=== PATIENT | female | born 1935 | race Caucasian/White ===

== ENCOUNTER 2019-07-30 11:58 | Emergency (ER) | payer SELFPAY ==
[2019-07-30] MEDS ORDERED: NS 0.9% 1000 ML** 1,000 ML BOLUS ONE ×2 (12:04→12:24)
--- NOTE | 2019-07-30 12:25 | UC ---
UC General HPI - HPI Summary HPI Summary: 84 yo female brought here by her granddaughters Apparently she has a three day history of no oral intake She has been non verbal and non ambulatory According to her granddaughter she is usually very active no fever no uri symptoms family denies any significant past medical history Family has been trying to feed her and give her liquids but she refuses them - History of Current Complaint Stated Complaint: UNRESPONSIVE Hx Obtained From: Family/Holder Pile Driving Hx From Patient Unobtainable Due To: Other - non verbal Onset/Duration: Gradual Onset, Lasting Days - 3 Timing: Constant PMH/Surg Hx/FS Hx/Imm Hx Previously Healthy: Yes - Family History Known Family History: Positive: Non-Contributory Review of Systems All Other Systems Reviewed And Are Negative: Yes Constitutional: Positive: Negative Skin: Positive: Negative Eyes: Positive: Negative ENT: Positive: Negative Respiratory: Positive: Negative Cardiovascular: Positive: Negative Gastrointestinal: Positive: Negative Genitourinary: Positive: Negative Motor: Positive: Negative Neurovascular: Positive: Negative Musculoskeletal: Positive: Negative Neurological: Positive: Negative Psychological: Positive: Negative Physical Exam Triage Information Reviewed: Yes Appearance: Other: - cachetic/contractures/poor skin turgor Vital Signs Reviewed: Yes Eyes: Positive: Conjunctiva Clear ENT: Negative: Nasal congestion, Nasal drainage Dental: Negative: Abscess @ Neck: Positive: No Lymphadenopathy Respiratory: Positive: Lungs clear, Normal breath sounds, No respiratory distress, No accessory muscle use Cardiovascular: Positive: RRR Abdomen Description: Positive: Soft Bowel Sounds: Positive: Present Neurological: Positive: Other: - eyes open/responds verbally to pain Skin: Positive: Other - poor turgor Diagnostics - Laboratory Lab Results: Blood sugar 51 - EKG Cardiac Rate: NL Cardiac Rhythm: Sinus: Normal Ectopy: None ST Segment: Normal Course/Dx - Course Course Of Treatment: IV started one amp D50 given Unable to give provider to provider report due to ongoing code in ER Spoke to RN to [facility] via bangs - Diagnoses Provider Diagnosis: Change in mental status, Dehydration, Hypoglycemia Discharge ED - Sign-Out/Discharge Documenting (check all that apply): Patient Departure All imaging exams completed and their final reports reviewed: No Studies - Discharge Plan Condition: Guarded Disposition: TRANS HIGHER LVL OF CARE FAC Meds/Orders/Equipment: Manual Entry Orders Location: None Selected Referrals: No Primary Care Phys,NOPCP [Primary Care Provider] - - Billing Disposition and Condition Condition: GUARDED Disposition: Trans Higher Lvl of Care Fac
[2019-07-30] MEDS ORDERED: Dextrose 50% Syringe 50 ML* 25 GM/50 ML SYRINGE IV PUSH PRN (12:40)
[2019-07-30 12:42] VITALS: BP 145/65
== END 2019-07-30 12:45 | disposition short-term general hospital (02) ==
LOC: UCEAST 11:58
DX: E86.0 Dehydration (principal); E16.2 Hypoglycemia, unspecified; R41.82 Altered mental status, unspecified
CPT/HCPCS: 99203; G0463

== ENCOUNTER 2019-07-30 13:00 | Observation (INO) | payer SELFPAY ==
--- NOTE | 2019-07-30 13:27 | ED ---
Altered Mental Status - HPI Summary HPI Summary: 84 year old F arriving via ambulance from [facility] with family members complains of altered mental status x3 days. Family member states patient is normally alert and oriented, and walks and talks. Patient usually needs help getting dressed per family member and with other ADLs. They state she has a hx of dementia but usually much more independent. She has not seen a doctor in many years. Patient was fine 3 days ago when she suddenly stopped walking and talking. Family member states patient has not been eating anything in 3 days. No fever or vomiting No recent falls. Patient was seen here 3 months ago for dehydration per family member. Surgical hx hip surgery. Symptoms aggravated by nothing. Symptoms alleviated by nothing. - History Of Current Complaint Stated Complaint: ALTERED MENTAL STATUS PER EMS Time Seen by Provider: 07/30/19 13:07 Hx Obtained From: Family/Fire Medic Onset/Duration: Still Present Timing: Constant, Lasting Days - 3 Aggravating Factor(s): Nothing Alleviating Factor(s): Nothing - Allergies/Home Medications Allergies/Adverse Reactions: Allergies Allergy/AdvReac Type Severity Reaction Status Date / Time No Known Allergies Allergy Verified 07/30/19 12:33 PMH/Surg Hx/FS Hx/Imm Hx Endocrine/Hematology History: Denies: Hx Diabetes Cardiovascular History: Denies: Hx Pacemaker/ICD - Surgical History Surgery Procedure, Year, and Place: hip surgery Infectious Disease History: Unable to Obtain/Confirm Infectious Disease History: Denies: Traveled Outside the [place] in Last 30 Days - Family History Known Family History: Negative: Diabetes - Social History Alcohol Use: None Substance Use Type: Reports: None Smoking Status (MU): Never Smoked Tobacco Review of Systems Negative: Fever Negative: Vomiting Neurological: Other - altered mental status All Other Systems Reviewed And Are Negative: Yes Physical Exam - Summary Physical Exam Summary: Constitutional: Eldery, Alert. (-) Distressed Skin: Warm, Dry HENT: Normocephalic; Atraumatic; Dry mucous membranes Eyes: Conjunctiva normal Neck: Musculoskeletal ROM normal neck. (-) JVD, (-) Stridor, (-) Nuchal rigidity Cardio: Rhythm regular, rate normal, Heart sounds normal; Intact distal pulses; Radial pulses are 2+ and symmetric. (-) Murmur Pulmonary/Chest wall: Effort normal. (-) Respiratory distress, (-) Wheezes, (-) Rales Abd: Soft, (-) tenderness, (-) Distension, (-) Guarding, (-) Rebound Musculoskeletal: (-) Edema; Extremities are thin Lymph: (-) Cervical adenopathy Neuro: Somnolent, arouses to painful stimuli, no focal deficits Psych: deferred GCS: 9 ([id number]) Triage Information Reviewed: Yes Vital Signs On Initial Exam: Initial Vitals Temp Pulse Resp BP Pulse Ox 97.0 F 89 12 183/87 96 07/30/19 13:10 07/30/19 13:10 07/30/19 13:10 07/30/19 13:10 07/30/19 13:10 Vital Signs Reviewed: Yes Procedures - Sedation Patient Received Moderate/Deep Sedation with Procedure: No Diagnostics - Vital Signs Vital Signs Temp Pulse Resp BP Pulse Ox 07/30/19 13:10 97.0 F 89 12 183/87 96 - Laboratory Result Diagrams: 07/31/19 03:47 07/31/19 03:47 Lab Statement: Any lab studies that have been ordered have been reviewed, and results considered in the medical decision making process. 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 ED physician has reviewed this imaging report. - CT Brain CT Interpretation Completed By: Radiologist Summary of CT Findings: 1. NO EVIDENCE FOR ACUTE INTRACRANIAL ABNORMALITY. 2. 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 ED physician has reviewed this imaging report. - EKG 1557 Cardiac Rate: NL - 82 BPM EKG Rhythm: Sinus Rhythm Summary of EKG Findings: An EKG at 1557 reveals normal sinus rhythm 82 BPM, nml axis, nml intervals. No STEMI. No acute changes. ED physician has reviewed and interpreted this EKG. Re-Evaluation - Re-Evaluation First Eval Re-Evaluation Time: 16:04 Comment: updated family on neg brain CT and lab results, awaiting UA Second Eval Re-Evaluation Time: 16:11 Comment: patient and family informed patient has UTI Altered Mental Statu Course/Dx - Course Course Of Treatment: 84 y/o F w hx dementia pw AMS. - at [facility] patient had hypoglycemia, s/p D50. Now w BG 200's. DDx includes: CVA, trauma, post ictal, infection, electrolyte abnl, hypothyroidism, psych, worsening dementia. - head CT unremarkable. CXR neg. Labs unremarkable aside from UA w 3+ LE. Given ceftriaxone and IVF. Admit to hospitalist as patient not taking PO or walking. - Diagnoses Provider Diagnoses: UTI (urinary tract infection), Altered mental status, Dehydration - Provider Notifications Discussed Care Of Patient With: Tammy Gauthier Time Discussed With Above Provider: 16:26 Instructed by Provider To: Admit As Inpatient Discharge ED - Sign-Out/Discharge Documenting (check all that apply): Patient Departure - Discharge Plan Condition: Guarded Disposition: ADMITTED TO [facility] - Billing Disposition and Condition Condition: GUARDED Disposition: Admitted to [facility] - Attestation Statements Document Initiated by Yudie: Yes Documenting Scribe: Leslie Vasquez Provider For Whom Aman is Documenting (Include Credential): Hector Pat MD Scribe Attestation: Leslie Orona, scribed for Hector Pat MD on 07/31/19 at 2224. Scribe Documentation Reviewed: Yes Provider Attestation: The documentation as recorded by the scribeLeslie accurately reflects the service I personally performed and the decisions made by , Hector Pat MD Status of Scribe Document: Viewed
[2019-07-30 15:02] LABS: ABS Lymphocytes 1.8 10^3/ul (1.0-4.8); ABS Monocytes 0.5 10^3/ul (0-0.8); ABS Neutrophils 4.4 10^3/ul (1.5-7.7); Eosinophil % 0.5 %; Hematocrit 37 % (35-47); Hemoglobin 12.4 g/dL (12.0-16.0); Lymphocyte % 26.8 %; Mean Corpuscular HGB Conc 34 g/dL (31-36); Mean Corpuscular Hemoglobin 29 pg (27-31); Mean Corpuscular Volume 86 fL (80-97); Platelet Count 309 10^3/uL (150-450); Red Blood Count 4.32 10^6 /uL (3.70-4.87); Red Cell Distribution Width 13 % (10-15); White Blood Count 6.8 10^3/uL (3.5-10.8)
[2019-07-30 15:18] LABS: ALT 9 U/L (7-52); AST 18 U/L (13-39); Albumin 3.6 g/dL (3.2-5.2); Albumin/Globulin Ratio 1.1 (1-3); Alkaline Phosphatase 67 U/L (34-104); Anion Gap 9 mmol/L (2-11); BUN/Creatinine Ratio 28.4 (8-20); Blood Urea Nitrogen 25 mg/dL (6-24); CO2 Carbon Dioxide 23 mmol/L (22-32); Calcium 8.7 mg/dL (8.6-10.3); Chloride 101 mmol/L (101-111); EGFR African American 73.7 (>60); EGFR Non-African American 60.9 (>60); Globulin 3.4 g/dL (2-4); Glucose 177 mg/dL (70-100); Potassium 3.5 mmol/L (3.5-5.0); Sodium 133 mmol/L (135-145)
[2019-07-30 15:26] LABS: Troponin I 0.04 ng/mL (<0.03)
[2019-07-30 16:02] LABS: Urine Appearance Cloudy; Urine Bilirubin Negative (Negative); Urine Blood 2+ (Negative); Urine Color Yellow; Urine Glucose 3+(>=500 mg/dL) (Negative); Urine Ketones 1+ (Negative); Urine Nitrite Negative (Negative); Urine Protein Negative (Negative); Urine Specific Gravity 1.009 (1.010-1.030); Urine Urobilinogen Negative (Negative)
[2019-07-30 16:04] LABS: Urine Bacteria 1+ (Absent); Urine Red Blood Cell 3+(>10/hpf) (Absent); Urine Squamous Epithelial Cell Present (Absent); Urine White Blood Cell 3+(>20/hpf) (Absent)
[2019-07-30] MEDS ORDERED: cefTRIAXone(*) 1 GM in NS 0.9% 50 ML* 50 ML IVPB ONE (16:06)
[2019-07-30] MEDS ORDERED: cefTRIAXone(*) 1 GM ADVAN/BAG ONE (16:31)
[2019-07-30] MEDS ORDERED: NS 0.9% 1000 ML** 1,000 ML IV ONE (17:03)
[2019-07-30] MEDS ORDERED: Acetaminophen TAB* 325 MG PO PRN (17:05)
[2019-07-30] MEDS ORDERED: Ondansetron INJ* 2 MG/ML VIAL IV PRN (17:05)
[2019-07-30] MEDS ORDERED: Al Hydrox/Mg Hydrox/Simet LIQ* 30 ML UDC PO PRN (17:05)
[2019-07-30] MEDS ORDERED: Labetalol IV* 5 MG/ML 20 ML VIAL IV PUSH ONE (17:07)
[2019-07-30] MEDS ORDERED: NS 0.9% 1000 ML** 1,000 ML IV SCH (17:15)
[2019-07-30] MEDS ORDERED: hydrALAZINE IV* 20 MG/ML VIAL IV SLOW PU PRN (17:19)
[2019-07-30] MEDS ORDERED: Enoxaparin(*) 40 MG/0.4 ML SYR SUBCUT SCH (18:00)
[2019-07-30 18:31] LABS: Troponin I 0.05 ng/mL (<0.03)
--- NOTE | 2019-07-30 18:59 | HP ---
HISTORY AND PHYSICAL: DATE OF ADMISSION: 07/30/19 PROVIDER: CAROL Coleman ATTENDING PHYSICIAN WHILE IN THE HOSPITAL: Dr. Tammy Mcdonald * (dictated by CAROL Coleman). PRIMARY CARE PROVIDER: None. CHIEF COMPLAINT: Decreased appetite and altered mental status. HISTORY OF PRESENT ILLNESS: Eli Packer is an 84-year-old Mong[place]ian woman who presents to the emergency department today upon direction from urgent care. The patient's daughter and granddaughter brought her to the emergency department today due to worsening altered mental status as well as decreased appetite. The patient additionally has not been drinking for the last 3 days in addition to not eating last 3 days. At baseline, the patient has dementia, but is typically oriented to self and able to answer questions overall appropriately. At baseline, she is not oriented to location, but knows she lives with her daughter and is not oriented to time as well. Typically, she ambulates on her own with one assist and is able to follow basic commands. She has slowly been more withdrawn, and today, she was not answering questions at all and she is brought to the emergency department upon direction of the urgent care facility. The history is provided by the patient's granddaughter, who she lives with, as the patient is not answering questions, and additionally, the patient does not know Thai. The patient's granddaughter tells me that the patient has been grabbing her abdomen more frequently, but she does not appear in overt pain and she has not been vomiting. The patient has chronic constipation at baseline and has not had any bowel changes or diarrhea. She measured her temperature at home today and it was normal at 98 degrees Fahrenheit and she has not had fevers or chills. She has not been having respiratory distress or recent cough and has not had complaints otherwise. Additionally when the patient was at urgent care, she had a blood sugar checked which found blood glucose of 51 and an ampule of D50 was given and EMS was called. PAST MEDICAL HISTORY: 1. Dementia. 2. Chronic constipation. PAST SURGICAL HISTORY: Left hip ORIF last year. MEDICATIONS: No home medications or supplements. ALLERGIES: No known drug allergies. FAMILY HISTORY: Her parents' medical history is unknown, but she does have 4 children who have history of diabetes mellitus type 2. SOCIAL HISTORY: The patient is from [place] and moved to [place] a year ago to live with her daughter and granddaughter. The patient's confederated salish language is Morris. She responds to the name, Ochoa. She is a . She does not smoke, drink, or use illicit drugs and she was never a smoker. 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 REVIEW OF SYSTEMS: An 11-point review of systems is answered to the best of the granddaughter's ability. All pertinent positives and negatives are above in the HPI. All other systems are negative. PHYSICAL EXAMINATION GENERAL: Thin Mong[place]ian female, lying in hospital bed, appearing comfortable, in no acute distress. VITAL SIGNS: Temperature 97.0, pulse 89, respiratory rate 12, oxygen saturation 96% on room air, and blood pressure 183/87. HEENT: Eyes: PERRL. Sclerae anicteric. EOMI. No gaze deviation. Unable to assess for nystagmus with eye motion as the patient does not follow commands. ENT: Lips appear dry. LUNGS: Poor patient effort, but lungs sound clear to auscultation and respirations are symmetrical. CARDIO: Regular rate and rhythm without murmurs, rubs, or gallops. ABDOMEN: Normoactive bowel sounds x4 quadrants. Abdomen is soft, nontender, nondistended. No suprapubic tenderness. EXTREMITIES: No clubbing, cyanosis, or edema. Extremities are thin. NEURO: The patient is alert, but not interactive, unable to assess orientation , unable to assess strength or sensation due to the patient's inability to follow basic commands. She does independently move all 4 extremities. SKIN: Warm, dry and intact. DIAGNOSTIC STUDIES/LAB DATA: White blood cell count 6.8, hemoglobin 12.4, hematocrit 37, platelet count 309. Sodium 133, potassium 3.8, chloride 101, carbon dioxide 23, anion gap 9, BUN 25, creatinine 0.88, glucose 177, lactic acid 1.3, calcium 8.7. LFTs are unremarkable. Troponin 0.04. Urinalysis with +1 ketones, +2 blood, +3 leukocyte esterase, +3 white blood cell count, +3 red blood cell count, +1 urine bacteria, specific gravity of 1.090. Brain CT, impression: 1. No evidence for acute intracranial abnormality. 2. 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 Chest x-ray: COPD with chronic interstitial disease. No concern for consolidation upon my read. EKG: Normal sinus rhythm, 82 beats per minute, normal axis, no ST depressions or elevations, no T-wave inversions. ASSESSMENT AND PLAN: Eli Packer is an 84-year-old Mong[place]ian woman who presents to the emergency department by her family due to altered mental status and decreased oral intake. The patient will be admitted inpatient for: 1. Altered mental status. At this point, I believe that the altered mental status is of metabolic cause as the patient does have high suspicion for urinary tract infection causing these symptoms, which will be further discussed below. Due to the patient's poor intractability, it is difficult to assess her full neurological status, though I am unable to find any focal deficit at this time. CT of her brain was negative. However, if with treatment of her UTI, her mental status does not improve then further imaging should be considered. At baseline, she ambulates with 1 person assist and is able to answer questions overall appropriately and is usually only oriented to self. 2. Urinary tract infection. I suspect the patient has urinary tract infection due to her abnormal urinalysis. She is afebrile. She does not have leukocytosis and her lactic acid is within normal limits. She received a gram of ceftriaxone in the emergency department. I will continue this starting tomorrow. Additionally, I will give her a bolus of normal saline and continuous fluids afterwards given the patient's decreased intake. Urine culture is pending. 3. Hypoglycemia. The patient had a blood sugar of 51 at urgent care today and was given an ampule of dextrose, and now, she does have hyperglycemia. I suspect her hypoglycemia is secondary to her poor oral intake for the last 2 to 3 days. We will continue to monitor this with q.4 fingersticks and I will check the hemoglobin A1c given her children's history of diabetes. 4. Hypertension. The patient does not take any medications at home and she does not carry a past medical history beyond dementia and chronic constipation; however, she does not have a local PCP and did not see doctor frequently in [place] either and it is possible that she has hypertension and we will continue to monitor this and I will order a p.r.n. hydralazine. 5. Elevated troponin. The patient's troponin is elevated minimally to 0.04. She has no EKG changes at this time. I will admit her on telemetry and repeat another EKG with the addition of troponin. I do suspect this is likely ischemic demand in the setting of her urinary tract infection, though additional troponin is needed. 6. FEN: The patient may have a regular unrestricted diet. Fluids as previously mentioned. Electrolytes overall with no need for repletion. 7. DVT prophylaxis: The patient has a DVT risk score of 3 and I will order a Lovenox while she is in the hospital. 8. Code status: The patient is DNR, intubation okay as a trial. Her MOLST has been updated. Her surrogate medical decision maker is her granddaughter, Eli Duran, her phone number is [phone]. TIME SPENT: Approximately 45 minutes was spent on this admission, approximately half this time was spent at bedside evaluating the patient and discussing the plan of care. EARLY DISCHARGE PLANNING: The patient does not have a primary care provider and she will need followup with [facility] at discharge. This case has been reviewed with my attending, Dr. Tammy Mcdonald, and she agrees with this plan of care. CAROL COLEMAN [id number]/[facility] #: [id number] RANJEET
[2019-07-30] MEDS: Senna TAB 8.6 mg* TAB PO SCH (20:38)
[2019-07-30] MEDS ORDERED: Dextrose 50% Syringe 50 ML* 25 GM/50 ML SYRINGE IV PUSH PRN (23:16)
[2019-07-30 23:58] LABS: Troponin I 0.06 ng/mL (<0.03)
[2019-07-31 03:55] LABS: ABS Eosinophils 0.1 10^3/ul (0-0.6); ABS Lymphocytes 2.3 10^3/ul (1.0-4.8); ABS Monocytes 0.6 10^3/ul (0-0.8); ABS Neutrophils 4.4 10^3/ul (1.5-7.7); Eosinophil % 0.9 %; Hematocrit 36 % (35-47); Hemoglobin 11.9 g/dL (12.0-16.0); Lymphocyte % 31.2 %; Mean Corpuscular HGB Conc 34 g/dL (31-36); Mean Corpuscular Hemoglobin 29 pg (27-31); Mean Corpuscular Volume 87 fL (80-97); Mean Platelet Volume 6.9 fL (7.4-10.4); Nucleated Red Blood Cells % 0.2; Platelet Count 274 10^3/uL (150-450); Red Cell Distribution Width 13 % (10-15); White Blood Count 7.3 10^3/uL (3.5-10.8)
[2019-07-31 04:16] LABS: Troponin I 0.06 ng/mL (<0.03)
[2019-07-31 04:33] LABS: BUN/Creatinine Ratio 22.7 (8-20); Calcium 8.3 mg/dL (8.6-10.3); EGFR African American 102.7 (>60); EGFR Non-African American 84.9 (>60); Potassium 3.4 mmol/L (3.5-5.0)
[2019-07-31 05:19] VITALS: BP 156/56
[2019-07-31] MEDS ORDERED: Pneumococcal *Vac Polyvalent 0.5 ML VIAL IM ONE (09:00)
[2019-07-31] MEDS: Senna TAB 8.6 mg* TAB PO SCH (09:41)
[2019-07-31] MEDS ORDERED: cefTRIAXone(*) 1 GM in NS 0.9% 50 ML* 50 ML IVPB ONE (10:01)
--- NOTE | 2019-07-31 11:41 | CONSULT ---
Palliative / Hospice Consult Ordering Provider: Sarwat Fulton - no PCP Referal Reason: Goals of care/senna/no narcotics - Subjective Code Status: DNR Advance Directives Location: No Advance Directives MOLST Part A Completed: Yes - on chart MOLST Part E Completed:: Yes - on chart - History or Present Illness History or Present Illness: 84yo female with moderately severe dementia presents to ER with AMS and not eating last 3 days. PMH is significant for dementia. PSHx lives with family, no etoh, no drugs, no tob requires help with her ADLs granddaughter is her HCP. 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 Pt admitted with AMS and UTI. All history is family and medical record pt unable to contribute. Lab Values: Abnormal Lab Results 07/30/19 07/30/19 07/30/19 13:09 14:45 14:45 WBC 6.8 RBC 4.32 Hgb 12.4 Hct 37 MCV 86 MCH 29 MCHC 34 RDW 13 Plt Count 309 MPV 7.0 L Neut % (Auto) 65.1 Lymph % (Auto) 26.8 Walker % (Auto) 7.0 Eos % (Auto) 0.5 Baso % (Auto) 0.6 Absolute Neuts (auto) 4.4 Absolute Lymphs (auto) 1.8 Absolute Monos (auto) 0.5 Absolute Eos (auto) 0.0 Absolute Basos (auto) 0.0 Absolute Nucleated RBC 0.0 Nucleated RBC % 0.0 Sodium 133 L Potassium 3.5 Chloride 101 Carbon Dioxide 23 Anion Gap 9 BUN 25 H Creatinine 0.88 Est GFR ( Amer) 73.7 Est GFR (Non-Af Amer) 60.9 BUN/Creatinine Ratio 28.4 H Glucose 177 H POC Glucose (mg/dL) 214 H Hemoglobin A1c Lactic Acid Calcium 8.7 Total Bilirubin 0.40 AST 18 ALT 9 Alkaline Phosphatase 67 Troponin I 0.04 H* Total Protein 7.0 Albumin 3.6 Globulin 3.4 Albumin/Globulin Ratio 1.1 Urine Color Urine Appearance Urine pH Ur Specific [place] Urine Protein Urine Ketones Urine Blood Urine Nitrate Urine Bilirubin Urine Urobilinogen Ur Leukocyte Esterase Urine WBC (Auto) Urine RBC (Auto) Ur Squamous Epith Cells Urine Bacteria Urine Glucose 07/30/19 07/30/19 07/30/19 14:45 14:45 15:45 WBC RBC Hgb Hct MCV MCH MCHC RDW Plt Count MPV Neut % (Auto) Lymph % (Auto) Walker % (Auto) Eos % (Auto) Baso % (Auto) Absolute Neuts (auto) Absolute Lymphs (auto) Absolute Monos (auto) Absolute Eos (auto) Absolute Basos (auto) Absolute Nucleated RBC Nucleated RBC % Sodium Potassium Chloride Carbon Dioxide Anion Gap BUN Creatinine Est GFR ( Amer) Est GFR (Non-Af Amer) BUN/Creatinine Ratio Glucose POC Glucose (mg/dL) Hemoglobin A1c 5.3 Lactic Acid 1.3 Calcium Total Bilirubin AST ALT Alkaline Phosphatase Troponin I Total Protein Albumin Globulin Albumin/Globulin Ratio Urine Color Yellow Urine Appearance Cloudy Urine pH 5.0 Ur Specific [place] 1.009 L Urine Protein Negative Urine Ketones 1+ A Urine Blood 2+ A Urine Nitrate Negative Urine Bilirubin Negative Urine Urobilinogen Negative Ur Leukocyte Esterase 3+ A Urine WBC (Auto) 3+(>20/hpf) A Urine RBC (Auto) 3+(>10/hpf) A Ur Squamous Epith Cells Present A Urine Bacteria 1+ A Urine Glucose 3+(>=500 mg/dl) A 07/30/19 07/30/19 07/30/19 18:04 20:59 23:26 WBC RBC Hgb Hct MCV MCH MCHC RDW Plt Count MPV Neut % (Auto) Lymph % (Auto) Walker % (Auto) Eos % (Auto) Baso % (Auto) Absolute Neuts (auto) Absolute Lymphs (auto) Absolute Monos (auto) Absolute Eos (auto) Absolute Basos (auto) Absolute Nucleated RBC Nucleated RBC % Sodium Potassium Chloride Carbon Dioxide Anion Gap BUN Creatinine Est GFR ( Amer) Est GFR (Non-Af Amer) BUN/Creatinine Ratio Glucose POC Glucose (mg/dL) 62 L Hemoglobin A1c Lactic Acid Calcium Total Bilirubin AST ALT Alkaline Phosphatase Troponin I 0.05 H* 0.06 H* Total Protein Albumin Globulin Albumin/Globulin Ratio Urine Color Urine Appearance Urine pH Ur Specific [place] Urine Protein Urine Ketones Urine Blood Urine Nitrate Urine Bilirubin Urine Urobilinogen Ur Leukocyte Esterase Urine WBC (Auto) Urine RBC (Auto) Ur Squamous Epith Cells Urine Bacteria Urine Glucose 07/31/19 07/31/19 07/31/19 02:19 03:47 03:47 WBC RBC Hgb Hct MCV MCH MCHC RDW Plt Count MPV Neut % (Auto) Lymph % (Auto) Walker % (Auto) Eos % (Auto) Baso % (Auto) Absolute Neuts (auto) Absolute Lymphs (auto) Absolute Monos (auto) Absolute Eos (auto) Absolute Basos (auto) Absolute Nucleated RBC Nucleated RBC % Sodium 137 Potassium 3.4 L Chloride 106 Carbon Dioxide 22 Anion Gap 9 BUN 15 Creatinine 0.66 Est GFR ( Amer) 102.7 Est GFR (Non-Af Amer) 84.9 BUN/Creatinine Ratio 22.7 H Glucose 55 L POC Glucose (mg/dL) 69 L Hemoglobin A1c Lactic Acid Calcium 8.3 L Total Bilirubin AST ALT Alkaline Phosphatase Troponin I 0.06 H* Total Protein Albumin Globulin Albumin/Globulin Ratio Urine Color Urine Appearance Urine pH Ur Specific [place] Urine Protein Urine Ketones Urine Blood Urine Nitrate Urine Bilirubin Urine Urobilinogen Ur Leukocyte Esterase Urine WBC (Auto) Urine RBC (Auto) Ur Squamous Epith Cells Urine Bacteria Urine Glucose 07/31/19 07/31/19 07/31/19 03:47 05:50 09:17 WBC 7.3 RBC 4.10 Hgb 11.9 L Hct 36 MCV 87 MCH 29 MCHC 34 RDW 13 Plt Count 274 MPV 6.9 L Neut % (Auto) 59.5 Lymph % (Auto) 31.2 Walker % (Auto) 7.9 Eos % (Auto) 0.9 Baso % (Auto) 0.5 Absolute Neuts (auto) 4.4 Absolute Lymphs (auto) 2.3 Absolute Monos (auto) 0.6 Absolute Eos (auto) 0.1 Absolute Basos (auto) 0.0 Absolute Nucleated RBC 0.0 Nucleated RBC % 0.2 Sodium Potassium Chloride Carbon Dioxide Anion Gap BUN Creatinine Est GFR ( Amer) Est GFR (Non-Af Amer) BUN/Creatinine Ratio Glucose POC Glucose (mg/dL) 68 L 60 L Hemoglobin A1c Lactic Acid Calcium Total Bilirubin AST ALT Alkaline Phosphatase Troponin I Total Protein Albumin Globulin Albumin/Globulin Ratio Urine Color Urine Appearance Urine pH Ur Specific [place] Urine Protein Urine Ketones Urine Blood Urine Nitrate Urine Bilirubin Urine Urobilinogen Ur Leukocyte Esterase Urine WBC (Auto) Urine RBC (Auto) Ur Squamous Epith Cells Urine Bacteria Urine Glucose Laboratory Last Values WBC 7.3 10^3/uL (3.5-10.8) 07/31/19 03:47 RBC 4.10 10^6 /uL (3.70-4.87) 07/31/19 03:47 Hgb 11.9 g/dL (12.0-16.0) L 07/31/19 03:47 Hct 36 % (35-47) 07/31/19 03:47 MCV 87 fL (80-97) 07/31/19 03:47 MCH 29 pg (27-31) 07/31/19 03:47 MCHC 34 g/dL (31-36) 07/31/19 03:47 RDW 13 % (10-15) 07/31/19 03:47 Plt Count 274 10^3/uL (150-450) 07/31/19 03:47 MPV 6.9 fL (7.4-10.4) L 07/31/19 03:47 Neut % (Auto) 59.5 % 07/31/19 03:47 Lymph % (Auto) 31.2 % 07/31/19 03:47 Walker % (Auto) 7.9 % 07/31/19 03:47 Eos % (Auto) 0.9 % 07/31/19 03:47 Baso % (Auto) 0.5 % 07/31/19 03:47 Absolute Neuts (auto) 4.4 10^3/ul (1.5-7.7) 07/31/19 03:47 Absolute Lymphs (auto) 2.3 10^3/ul (1.0-4.8) 07/31/19 03:47 Absolute Monos (auto) 0.6 10^3/ul (0-0.8) 07/31/19 03:47 Absolute Eos (auto) 0.1 10^3/ul (0-0.6) 07/31/19 03:47 Absolute Basos (auto) 0.0 10^3/ul (0-0.2) 07/31/19 03:47 Absolute Nucleated RBC 0.0 10^3/ul 07/31/19 03:47 Nucleated RBC % 0.2 07/31/19 03:47 Sodium 137 mmol/L (135-145) 07/31/19 03:47 Potassium 3.4 mmol/L (3.5-5.0) L 07/31/19 03:47 Chloride 106 mmol/L (101-111) 07/31/19 03:47 Carbon Dioxide 22 mmol/L (22-32) 07/31/19 03:47 Anion Gap 9 mmol/L (2-11) 07/31/19 03:47 BUN 15 mg/dL (6-24) 07/31/19 03:47 Creatinine 0.66 mg/dL (0.51-0.95) 07/31/19 03:47 Est GFR ( Amer) 102.7 (>60) 07/31/19 03:47 Est GFR (Non-Af Amer) 84.9 (>60) 07/31/19 03:47 BUN/Creatinine Ratio 22.7 (8-20) H 07/31/19 03:47 Glucose 55 mg/dL (70-100) L 07/31/19 03:47 POC Glucose (mg/dL) 60 mg/dL (70-100) L 07/31/19 09:17 Hemoglobin A1c 5.3 % (4.0-5.6) 07/30/19 14:45 Lactic Acid 1.3 mmol/L (0.5-2.0) 07/30/19 14:45 Calcium 8.3 mg/dL (8.6-10.3) L 07/31/19 03:47 Total Bilirubin 0.40 mg/dL (0.2-1.0) 07/30/19 14:45 AST 18 U/L (13-39) 07/30/19 14:45 ALT 9 U/L (7-52) 07/30/19 14:45 Alkaline Phosphatase 67 U/L (34-104) 07/30/19 14:45 Troponin I 0.06 ng/mL (<0.03) H* 07/31/19 03:47 Total Protein 7.0 g/dL (6.4-8.9) 07/30/19 14:45 Albumin 3.6 g/dL (3.2-5.2) 07/30/19 14:45 Globulin 3.4 g/dL (2-4) 07/30/19 14:45 Albumin/Globulin Ratio 1.1 (1-3) 07/30/19 14:45 Urine Color Yellow 07/30/19 15:45 Urine Appearance Cloudy 07/30/19 15:45 Urine pH 5.0 (5-9) 07/30/19 15:45 Ur Specific [place] 1.009 (1.010-1.030) L 07/30/19 15:45 Urine Protein Negative (Negative) 07/30/19 15:45 Urine Ketones 1+ (Negative) A 07/30/19 15:45 Urine Blood 2+ (Negative) A 07/30/19 15:45 Urine Nitrate Negative (Negative) 07/30/19 15:45 Urine Bilirubin Negative (Negative) 07/30/19 15:45 Urine Urobilinogen Negative (Negative) 07/30/19 15:45 Ur Leukocyte Esterase 3+ (Negative) A 07/30/19 15:45 Urine WBC (Auto) 3+(>20/hpf) (Absent) A 07/30/19 15:45 Urine RBC (Auto) 3+(>10/hpf) (Absent) A 07/30/19 15:45 Ur Squamous Epith Cells Present (Absent) A 07/30/19 15:45 Urine Bacteria 1+ (Absent) A 07/30/19 15:45 Urine Glucose 3+(>=500 mg/dl) (Negative) A 07/30/19 15:45 - Objective Active Medications: Acetaminophen (Tylenol Tab*) 650 mg PO Q4H PRN PRN Reason: MILD PAIN or TEMP > 100.4 Al Hydrox/Mg Hydrox/Simethicone (Maalox Plus*) 30 ml PO Q6H PRN PRN Reason: INDIGESTION Dextrose (D50w Syringe 50 Ml*) 25 gm IV PUSH .FOR FS < 60 - SS PRN PRN Reason: FS < 60 Last Admin: 07/30/19 23:43 Dose: 25 gm Enoxaparin Sodium (Lovenox(*)) 40 mg SUBCUT Q24H [facility] Last Admin: 07/30/19 17:58 Dose: 40 mg Hydralazine HCl (Apresoline Iv*) 5 mg IV SLOW PU Q6H PRN PRN Reason: SYSTOLIC BP GREATER THAN: Last Admin: 07/30/19 20:38 Dose: 5 mg Sodium Chloride (Ns 0.9% 1000 Ml) 1,000 mls @ 100 mls/hr IV PER RATE BERNIE Last Admin: 07/30/19 20:10 Dose: 100 mls/hr Ondansetron HCl (Zofran Inj*) 4 mg IV Q4H PRN PRN Reason: NAUSEA/VOMITING Senna (Senokot 8.6 Mg Tab*) 1 tab PO BID [facility] Last Admin: 07/31/19 09:41 Dose: Not Given Vital Signs: Vital Signs: Temp Pulse Resp BP Pulse Ox 97.8 F 83 16 156/56 99 07/31/19 07:15 07/31/19 07:15 07/31/19 07:15 07/31/19 03:37 07/31/19 07:15 Patient Weight: Weight 39.009 kg Intake and Output: Intake & Output 07/29/19 07/30/19 07/31/19 08/01/19 06:59 06:59 06:59 06:59 Intake Total 1464 Balance 1464 Weight 39.009 kg Intake: IV Fluids 1464 NS (0.9%) 414 Oral 0 Other: Estimated Void Medium Medium # Voids 4 2 ADLs: Meal Record Start: 07/30/19 20: 22 Freq: DAILY@0900,1400,1800 Status: Active Protocol: Created 07/30/19 20:22 System (Rec: 07/30/19 20:22 System [id number]) Intake and Output Start: 07/30/19 13: 13 Freq: Status: Complete Protocol: Created 07/30/19 13:13 System (Rec: 07/30/19 13:13 System [id number]) Intake and Output Start: 07/30/19 20: 22 Freq: DAILY@0600,1400,2200 Status: Active Protocol: Created 07/30/19 20:22 System (Rec: 07/30/19 20:22 System [id number]) Document 07/30/19 22:00 [id number] (Rec: 07/30/19 22:42 [id number] [id number]) Document 07/31/19 06:00 [id number] (Rec: 07/31/19 06:51 [id number] [id number]) Ears/Nose/Mouth/Throat: NL Teeth, Lips, Gums, Clear Oropharnyx Neck: NL Appearance and Movements; NL JVP Cardiovascular: NL Sounds; No Murmurs; No JVD Respiratory: Symmetrical Chest Expansion and Respiratory Effort Abdominal: NL Sounds; No Tenderness; No Distention Extremities: No Edema - Assessment Assessment: 84yo female with dementia presents with AMS and presumed UTI - Plan Consult Plan (MU): Palliative Plan: Long discussion with family(2 grand daughters, daughter) and pt about goals of care. Family wants to bring pt home, offered VNS which they were happy about. We discussed pt is not eating and after 3-10 days with no intake pt could . They are not interested in a feeding tube and don't want aggressive care. They want to try to feed her at home. At this time they are not interested in hospice but I did give them a hospice brochure with phone number and they can self refer. They are happy to follow up with [facility]. Hospice eligibility would be based on no po intake. KPS 50%, PPS 50% - Time On Unit Date of Evaluation: 07/31/19 Hospice Consult Time in: 10:45 Hospice Consult Time Out: 11:45 Hospice Consult Time Total: 60 > 50% of Time Spend In Counseling or Coordinating Care: Yes
[2019-07-31] MEDS ORDERED: cefTRIAXone(*) 1 GM in NS 0.9% 50 ML* 50 ML IVPB SCH ×2 (12:00→16:00)
--- NOTE | 2019-07-31 17:16 | DS ---
DISCHARGE SUMMARY: DATE OF ADMISSION: DATE OF DISCHARGE: 07/31/19 HISTORY OF PRESENT ILLNESS/HOSPITAL COURSE: This 84-year-old woman was brought to the hospital by her family with complaint of decreased appetite and altered mental status. The family did say that she had a diagnosis of dementia; however , she has not seen a doctor in many years, she takes no home medications. For about the last 3 days, she was not eating or drinking. They were not aware of her losing weight, although I do note her BMI is 17. She ate nothing in the hospital here at all. She seems relatively calm. She had very poor comprehension and very poor communication skills. She was given ceftriaxone for possible urinary tract infection. I spoke to one of the granddaughters that she lives with. The patient has had memory problems for quite some time. I think they are minimizing her disability. She was able to function in the home fairly well, but they were concerned about her eating and drinking. Her urinalysis results were abnormal. Urine culture is pending. She was given 2 doses of ceftriaxone 1 g each. I do not think there was really any clinical change in her in the short time she was here. She had a palliative care consultation. The family is not interested in hospice at this time, although I think it might be appropriate. Visiting nurse service was set up for them. FINAL DIAGNOSIS: Dementia. DISCHARGE MEDICATIONS: None. FOLLOWUP: The patient will be referred to [facility] for medical followup. [id number]/[facility] #: [id number] RANJEET
== END 2019-07-31 13:00 | disposition home or self-care (01) ==
LOC: ED 13:00 → INTOOBSV 16:36 → MED 16:36 → ED 20:07
PROVIDERS: ADMIT Internal Medicine; ATTEND Internal Medicine
DX: F03.90 Unspecified dementia, unspecified severity, without behavioral disturbance, psychotic disturbance, mood disturbance, and anxiety (principal); R41.82 Altered mental status, unspecified; K59.09 Other constipation; R63.0 Anorexia; Z68.1 Body mass index [BMI] 19.9 or less, adult; N39.0 Urinary tract infection, site not specified; I10 Essential (primary) hypertension; E16.2 Hypoglycemia, unspecified; E86.0 Dehydration; Z23 Encounter for immunization
CPT/HCPCS: 36415; 70450; 71046; 80048; 80053; 81003; 81015; 83036; 83605; 84484; 85025; 87077; 87086; 87186; 90471; 90732; 93005; 96361; 96365; 96372; 96375; 99284; A9270-GY; G0009; G0378; J0360; J0696; J1650

== ENCOUNTER 2019-08-01 12:50 | Emergency (ER) | payer SELFPAY ==
--- NOTE | 2019-08-01 14:29 | ED ---
Skin Complaint - HPI Summary HPI Summary: Patient is a 84 y/o F presenting to [facility] with complaints of bleeding, bruising , and swelling to previous IV site at left elbow area. She was seen at [facility] for evaluation of AMS and decreased appetite. She was admitted with Dx of UTI. Patient was discharged home yesterday. Family reports that the patient has had bleeding from IV site since last night. They note there is now bruising and swelling to the area as well. They state that the patient is not on any daily medications. Bandage in place from waiting room. Home medications and allergies are reviewed. - History of Current Complaint Chief Complaint: EDExtremityUpper Time Seen by Provider: 08/01/19 14:04 Stated Complaint: BLEEDING FROM IV WONT STOP PER PT GRANDAUGHTER Hx Obtained From: Patient, Family/Director Process Improvement Onset/Duration: Still Present Timing: Constant Pain Intensity: 0 Pain Scale Used: 0-10 Numeric Skin Location: Arm - left elbow Character: Swelling Associated Signs & Symptoms: Drainage - bleeding, Bruising - Allergy/Home Medications Allergies/Adverse Reactions: Allergies Allergy/AdvReac Type Severity Reaction Status Date / Time No Known Allergies Allergy Verified 08/01/19 12:54 PMH/Surg Hx/FS Hx/Imm Hx Endocrine/Hematology History: Denies: Hx Diabetes Cardiovascular History: Reports: Hx Hypertension Denies: Hx Pacemaker/ICD Respiratory History: Reports: Hx Asthma, Hx Chronic Bronchitis GI History: Reports: Other GI Disorders - Chronic constipation Sensory History: Denies: Hx Contacts or Glasses, Hx Hearing Aid Opthamlomology History: Denies: Hx Contacts or Glasses Neurological History: Reports: Hx Dementia - Surgical History Surgery Procedure, Year, and Place: hip surgery Infectious Disease History: No Infectious Disease History: Denies: Traveled Outside the [place] in Last 30 Days - Family History Known Family History: Negative: Diabetes - Social History Alcohol Use: None Substance Use Type: Reports: None Smoking Status (MU): Never Smoked Tobacco Review of Systems Positive: Edema - left elbow IV site Skin: Other - positive - bleeding and bruising to left elbow IV site All Other Systems Reviewed And Are Negative: Yes Physical Exam - Summary Physical Exam Summary: Constitutional: Well-developed, Well-nourished, Alert. (-) Distressed Skin: 3 cm laceration to left elbow without any active bleeding. Warm, Dry HENT: Normocephalic; Atraumatic Eyes: Conjunctiva normal Neck: Musculoskeletal ROM normal neck. (-) JVD, (-) Stridor, (-) Tracheal deviation Cardio: Rhythm regular, rate normal, Heart sounds normal; Intact distal pulses; Radial pulses are 2+ and symmetric. (-) Murmur Pulmonary/Chest wall: Effort normal. (-) Respiratory distress, (-) Wheezes, (-) Rales Abd: Soft, (-) tenderness, (-) Distension, (-) Guarding, (-) Rebound Musculoskeletal: (-) Edema Lymph: (-) Cervical adenopathy Neuro: Alert, Oriented x3 Psych: Mood and affect Normal Triage Information Reviewed: Yes Vital Signs On Initial Exam: Initial Vitals Temp Pulse Resp BP Pulse Ox 98.4 F 93 16 159/79 94 08/01/19 12:52 08/01/19 12:52 08/01/19 12:52 08/01/19 12:52 08/01/19 12:52 Vital Signs Reviewed: Yes Procedures - Sedation Patient Received Moderate/Deep Sedation with Procedure: No Diagnostics - Vital Signs Vital Signs Temp Pulse Resp BP Pulse Ox 08/01/19 12:52 98.4 F 93 16 159/79 94 - Laboratory Lab Statement: Any lab studies that have been ordered have been reviewed, and results considered in the medical decision making process. Course/Dx - Course Course Of Treatment: Patient is here with a skin tear at the site of an IV from her recent hospitalization. Patient has no active bleeding or signs of infection. Patient had a skin tear repaired with Dermabond and Steri-Strips. - Diagnoses Provider Diagnoses: Skin tear of left elbow without complication Discharge ED - Sign-Out/Discharge Documenting (check all that apply): Patient Departure - discharge - Discharge Plan Condition: Stable Disposition: HOME Patient Education Materials: Skin Tear (ED) Referrals: [facility] [Outside] - 3 Days Additional Instructions: KEEP YOUR ELBOW DRY. STRIPS WILL COME OFF ON THEIR OWN. PLEASE RETURN TO ED FOR ANY REDNESS OR PUS TO THE AREA, FEVERS, OR ANY OTHER CONCERNING SYMPTOMS. - Billing Disposition and Condition Condition: STABLE Disposition: Home - Attestation Statements Document Initiated by Scribe: Yes Documenting Scribe: RONNY ATKINS Provider For Whom Scribe is Documenting (Include Credential): JORDAN LEPE MD Scribe Attestation: I, RONNY ATKINS, scribed for JORDAN LEPE MD on 08/01/19 at 2115. Scribe Documentation Reviewed: Yes Provider Attestation: The documentation as recorded by the RONNY quiñonez accurately reflects the service I personally performed and the decisions made by me, JORDAN LEPE MD Status of Scribe Document: Viewed
[2019-08-01 15:03] VITALS: BP 121/79
== END 2019-08-01 15:01 | disposition home or self-care (01) ==
LOC: ED 12:50
DX: S51.012A Laceration without foreign body of left elbow, initial encounter (principal); X58.XXXA Exposure to other specified factors, initial encounter; Y92.9 Unspecified place or not applicable; I10 Essential (primary) hypertension; J45.909 Unspecified asthma, uncomplicated; F03.90 Unspecified dementia, unspecified severity, without behavioral disturbance, psychotic disturbance, mood disturbance, and anxiety
CPT/HCPCS: 99281